=== PATIENT | female | born 1985 ===

== ENCOUNTER 2018-03-15 06:58 | Day surgery (SDC) | payer MEDICAID ==
[2018-03-12 15:28] VITALS: BMI 26.4
[2018-03-15] MEDS ORDERED: Ropivacaine 0.5% 30ML IV ONE (07:10)
[2018-03-15] MEDS ORDERED: Rocuronium 10 mg/ml (5 ml) ONE (07:12)
[2018-03-15] MEDS ORDERED: Midazolam 2 MG/2 ML VIAL ONE (07:12)
[2018-03-15] MEDS ORDERED: Lidocaine 4% (Laryng-O-Jet) Kit MM ONE (07:12)
[2018-03-15] MEDS ORDERED: Succinylcholine 200 mg/10 ml Inj IV ONE (07:12)
[2018-03-15] MEDS ORDERED: Propofol 10 mg/ml Inj (20 ML) ONE (07:12)
--- NOTE | 2018-03-15 07:14 | CP.SDSHP ---
Same Day Surgery H & P - History Proposed Procedure: Left shoulder arthroscopy, possible labral repair, possible acromioplasty, related procedures Pre-Op Diagnosis: Left shoulder SLAP tear, moderate Hill Sachs deformity, mild impingement syndrome - Previous Medical/Surgical History Previous Surgical History: myomectomy, right knee, left ankle - Allergies Allergies: Allergies No Known Allergies Allergy (Verified 03/12/18 15:29) - Physical Exam Heart: WNL Lungs: WNL GI: WNL - {Optional Preform as Required} Ortho: WNL (left shoulder: +ROM fingers, wrist/elbow, pain and instability sensation with overhead ROM of shoulder, sensation intact rad/med/uln nerve distrib) Other Pertinent Findings: MRI and labs on chart, reviewed. 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 no rx will be given. - Impression Impression: 32F with slip and fall, complains of left shoulder pain and instability sensation/subluxation for left shoulder arthroscopy. Pt. Evaluated Today:Candidate for Anesthesia & Procedure: Yes - Date & Time Date: 03/15/18 Time: 07:21 Short Stay Discharge - Short Stay Discharge Admitting Diagnosis/Reason for Visit: M75.122/ M25.512/ M25.612/ Disposition: HOME/ ROUTINE Past Patient History - Past Medical History & Family History Past Medical History?: Yes - Past Social History Smoking Status: Light Smoker < 10 Cigarettes Daily - MUSCULOSKELETAL/RHEUMATOLOGICAL Hx Back Pain: Yes Hx Falls: Yes Hx Fractures: Yes - SURGICAL HISTORY Other/Comment: Myomectomy Sept 11 - ANESTHESIA Hx Anesthesia: Yes Hx Anesthesia Reactions: No Has any member of the family had a problem w/ anesthesia?: No
[2018-03-15] MEDS ORDERED: EPINEPHrine 1 mg/ml (1:1000) Inj ONE ×2 (07:45→07:46)
[2018-03-15] MEDS ORDERED: Absorbable Gelatin Sponge Size 12-7 ONE (07:46)
[2018-03-15] MEDS ORDERED: Bacitracin Ointment 30 GM TUBE ONE (07:46)
[2018-03-15] MEDS ORDERED: Thrombin Topical 5,000 Int Units Spray Kit ONE (07:46)
[2018-03-15] MEDS ORDERED: Lidocaine 1% Inj (20ml) ONE (07:46)
[2018-03-15] MEDS ORDERED: Lactated Ringer's 1,000 ML IV ONE (07:50)
[2018-03-15] MEDS ORDERED: Dexamethasone 4 mg/1 ml ONE (08:38)
[2018-03-15] MEDS ORDERED: Sevoflurane - Inhalation Anesthetic Liq (250 ml) ONE (09:11)
[2018-03-15] MEDS ORDERED: Neostigmine 1:1000 (1 mg/ml) Inj ONE (09:43)
[2018-03-15] MEDS ORDERED: Oxycodone/Acetaminophen 5/325 mg Tab PO PRN (10:16)
--- NOTE | 2018-03-15 10:17 | PCM.SURG1 ---
Surgeon's Initial Post Op Note - Surgeon's Notes Surgeon: Juan Brush Maker: CAITLIN Villalobos Type of Anesthesia: General Endo, Block Regional Anesthesia Administered By: DR Hansel Olvera Pre-Operative Diagnosis: Recurrent post traumatic instability L shoulder. instability impingemnt L shoulder. bursitis /adhesaisons subacromial space Operative Findings: labral tear ( sl;ap lesion) extendinmg anterior to posterior to root of biceps tendon. Bankart lesion L shoulder/Hill Sachs lesion. bursitis/adhesions subacromuial space. subacromial instability impingment Post-Operative Diagnosis: as above Operation Performed: arthrosopic labral repair/ repair slap lesion. arthroscopic biceps tenodesis. arthroscopic partial acromioplasty. arthrosc opic lysis of adhesions and bursectomy Specimen/Specimens Removed: synovium/bursa/bone cartialge Estimated Blood Loss: EBL {In ML}: 5 Blood Products Given: N/A Drains Used: No Drains Post-Op Condition: Fair Date of Surgery/Procedure: 03/15/18 Time of Surgery/Procedure: 08:55 (time in room, 750/anestyhesia indcution time 7:50)
--- NOTE | 2018-03-15 10:18 | PCM.SURG1 ---
Surgeon's Initial Post Op Note - Surgeon's Notes Surgeon: Juan Centralized Traffic Control Operator: CAITLIN Falcon Type of Anesthesia: General Endo, Block Regional Anesthesia Administered By: DR Hansel Olvera Pre-Operative Diagnosis: post traumatic recurrent instability L shoulder. L shoulder instability impingmemnt- post traumatic Operative Findings: SLAP lesion L shoulder- anterior to posterior to root of biceps tendon. instability/avulsion biceps tendon anchor. Bankart lesion L shoulder/Hil;l sachs deformity L shoulder. subacromial impingment. adhesions/ bursitis in subacromial space Post-Operative Diagnosis: as above Operation Performed: Repair Slap lesion ant to psterior/repair Bankart lesion. arthroscopic biceps tenodesis. subacromial impingemnt. bursitis/adhesions in subacromial space Specimen/Specimens Removed: synovium/cartilagte/bone Estimated Blood Loss: EBL {In ML}: 5 Drains Used: No Drains Post-Op Condition: Fair Date of Surgery/Procedure: 03/15/18 Time of Surgery/Procedure: 08:55 (time in room 7:50)
[2018-03-15] MEDS ORDERED: Dexamethasone 4 mg/1 ml IVP PRN (10:24)
[2018-03-15] MEDS ORDERED: HYDROmorphone 0.5 mg/0.5 ml ISec IVP PRN (10:24)
--- NOTE | 2018-03-15 10:28 | PCM.ANESB1 ---
Interscalene Block - Brachial Plexus Date of Procedure: 03/15/18 Anesthesiologist: Hansel Olvera Pre-Procedure Diagnosis: L shoulder labral tear Post-Procedure Diagnosis: Same Procedure Performed: Interscalene Block of Brachial Plexus Left - Procedure Interscalene Block of Brachial Plexus: This procedure was explained to the patient that it is for post-operative pain management. Consent was obtained after a thorough discussion with the patient regarding the benefits and possible complications of local anesthetic block of the Brachial Plexus at the Interscalene area. The patient was brought to the Operating Room and standard monitors were applied. Time out was held with the circulating nurse to confirm the correct surgery and appropriate block. After inducing general anesthesia, the patient's head was gently rotated away from the left operative shoulder and the anterior scalene groove was carefully palpated. The ultrasound transducer was then applied to the skin in the transverse plane and the brachial plexus was visualized lateral to the carotid artery and in between the anterior and middle scalene muscles. After identification,the anter ior lateral portion of the neck was prepped with Chloraprep solution three times. At this point, a # 22 gauge Stimuplex 2 inches insulated needle was inserted into the interscalene groove and directed in a caudal and midline direction. The needle was inserted lateral to the ultrasound transducer in-plane towards the brachial plexus in a altscuj-vj-dynney direction. Needle advancement was performed carefully under direct ultrasound visualization. Nerve stimulator was used and twitched of the affected extremity including the hand brachialis muscles, biceps and the deltoid was obtained at a current of 0.3MA. After repeated negative aspiration, 30cc of 0.5% ropivacaine was injected in 5cc aliquots. Under ultrasound guidance the local anesthetics were observed surrounding the roots of the brachial plexus. The needle was removed intact and sterile dressing was applied. The patient had stable vital signs, was conscious and in no apparent distress. The patient tolerated the interscalene block of the bracheal plexus well with stable vital signs and was prepared for subsequent surgery.
[2018-03-15] MEDS ORDERED: Lactated Ringer's 1,000 ML IV SCH (10:30)
[2018-03-15 12:25] VITALS: TEMP 98; O2SAT 99
[2018-03-15 13:36] VITALS: BP 115/86; PULSE 84; RESP 20
--- NOTE | 2018-03-21 14:42 | OP ---
PROCEDURE DATE: 03/15/2018 PREOPERATIVE DIAGNOSES: 1. Post-traumatic instability and injury to the left shoulder. 2. Rule out instability and impingement of the left shoulder. 3. Subacromial impingement. POSTOPERATIVE DIAGNOSES: 1. Post-traumatic instability and injury to the left shoulder. 2. Rule out instability and impingement of the left shoulder. 3. Subacromial impingement. OPERATIVE FINDINGS: 1. Labral tear/SLAP lesion extending anterior to posterior to the root of the biceps tendon. 2. Bankart lesion of the left shoulder with evidence of a Hill-Sachs lesion. 3. Instability of the root of the biceps tendon. 4. Bursitis and adhesions in the subacromial space. 5. Subacromial instability and impingement. OPERATION PERFORMED: 1. Arthroscopic labral repair, repair of SLAP lesion/Bankart repair. 2. Intra-articular biceps tenodesis. 3. Arthroscopic acromioplasty. 4. Arthroscopic lysis of adhesions and bursectomy. SPECIMENS REMOVED: Synovium, cartilage, bursal tissue and bone. BLOOD LOSS: Approximately 5 mL. BLOOD PRODUCTS GIVEN: None. DRAINS: None. POSTOPERATIVE CONDITION: Stable. DATE OF SURGERY: 03/15/2018 INCISION TIME IN THE ROOM: 08:55. ANESTHESIA INDUCTION TIME: 07:50. OPERATIVE INDICATION: The patient is a 32-year-old woman who presents after a traumatic injury to the left shoulder. The patient was in her normal state of musculoskeletal health where unfortunately she had a fall on the left upper extremity. The patient presented with pain and restricted range of motion. The patient has been treated conservatively for greater than 9 months. The patient has undergone intra-articular injection,activity modification and therapy. Pros, cons, risks and benefits of surgical approach were discussed. The possibility of mechanical failure, infection, thromboembolic disease, possibility of secondary or tertiary surgery were discussed. The patient could no longer withstand the discomfort and informed consent was obtained from the patient. ANESTHESIA: General endotracheal anesthesia with regional block. ANESTHESIOLOGIST: Dr. Hansel Olvera SURGEON: Sher Martinez MD APPLICATION PACKAGING SPECIALIST: Evelin Dickey, certified registered nurse and patent legal assistant. COMPLICATIONS: None. DRAINS: None. OPERATIVE PROCEDURE: After having obtained informed consent, having identified side, site and procedure and a critical pause/time-out, after the satisfactory induction of the anesthetic, the left upper extremity was prepped and draped in a usual fashion for upper extremity surgery. The topographic anatomy of the shoulder was marked, the spine of the scapula, lateral aspect of the acromion, distal clavicle and coracoid process at a point approximately one thumb's breadth inferior and one thumb's breadth medial to the lateral aspect of the clavicle. The joint was insufflated with 10 mL of 1% lidocaine without epinephrine. Using #11 blade followed by spreading, followed by introduction of the blunt trocar, the arthroscope was introduced. Examination of the joint commenced. The triangulation was accomplished using #18-gauge spinal needle followed by #11 blade spreading introduction of the anterior cannula. With the arthroscope posteriorly, the cannula was introduced anteriorly over the Wissinger glory. This having been accomplished, there was found to be an avulsion of the labrum extending to the root of the biceps tendon and root of the biceps tendon was likewise unstable. This having been accomplished, the anterior aspect of the glenoid was roughened in anticipation of the SLAP lesion repair and Bankart lesion repair. This was accomplished using a 3.4-mm Rare Pink suction punch and a rasp. This having been accomplished through the anterior cannula, the Nitinol wire was placed around the labral avulsion with a modicum of capsule as well. The Nitinol wire was brought out anteriorly and loaded with FiberTape. Drilling was accomplished at approximately 10:30 position on the glenoid clock face. The PushLock anchor was introduced and the anchor was impacted. This was accomplished also superior to this and distal to this with two more anchors in exact same fashion. At this point in time, the root of the biceps tendon is addressed, and using the lasso hook, the Nitinol wire was introduced at the base of the biceps tendon and brought out anteriorly. The FiberTape was loaded into the PushLock anchor, drilling was accomplished, and at this point in time the PushLock anchor was introduced offering the intra-articular biceps tenodesis. The position of the anchors to the labral and Bankart repair is acceptable as is the biceps tenodesis. A third anchor was accomplished at approximately 8 o'clock to 08:30 on the glenoid clock face for the left shoulder with more capsule being taken with the repair of the Bankart lesion/labral tear. Again, drilling was accomplished, the anchor was loaded and impacted, and the repair was complete. There were some abrasions on the glenoid and these were debrided using 3.4 mm Dyonics suction punch. At this point in time, the arm was placed in dependency. Triangulation was accomplished from a mid lateral portal using #18-gauge spinal needle followed by #11 blade followed by spreading with the arthroscope posteriorly using #11 blade. Using the straight hemostat with the arthroscope posteriorly, there was found to be massive adhesions in the subacromial space and massive bursitis. With the arthroscope posteriorly using the arthroscopic shaver, an aggressive bursectomy was accomplished using a combination of the arthroscopic wand and the arthroscopic shaver. Extensive bursectomy and lysis of adhesions having been accomplished, there was found to be no instability of the AC joint. There was found to be evidence of impingement at the acromion. With the arthroscope posteriorly using the arthroscopic bur, a partial acromioplasty was accomplished. Careful partial acromioplasty having been accomplished with the bur, further debridement and lysis of adhesions of the subacromial space were accomplished. The wound was thoroughly irrigated. At this point in time, the humeral head was found to be centered, acceptable position of the Bankart labral repair and biceps tenodesis. The wound was thoroughly irrigated. Portals were closed with interrupted Vicryl and nylon. Intra-articular injection was deferred because of the scalene block. Compression dressing and shoulder abduction gunslinger splint was applied. Sher Martinez MD
== END 2018-03-15 13:30 | disposition home or self-care (01) ==
LOC: H.OPSURG 06:58
PROVIDERS: ATTEND Orthopaedic Surgery
DX: M75.122 Complete rotator cuff tear or rupture of left shoulder, not specified as traumatic (principal); M25.512 Pain in left shoulder; M25.612 Stiffness of left shoulder, not elsewhere classified; F17.210 Nicotine dependence, cigarettes, uncomplicated; M75.52 Bursitis of left shoulder
CPT/HCPCS: 29806; 29823; 29828; 88304; 88305; J0171; J0330; J0690; J1100; J2001; J2250; J2405; J2704; J2710; J3010; J7030; J7120